=== PATIENT | male | born 1960 | race Caucasian/White ===

== ENCOUNTER 2025-03-01 14:41 | Emergency (ER) | payer BC, SELFPAY ==
[2025-03-01 14:46] VITALS: BP 150/101
[2025-03-01 14:47] VITALS: BMI 32.3
[2025-03-01 14:48] VITALS: BP 150/101
--- NOTE | 2025-03-01 14:57 | ED.GENMED ---
History of Present Illness
General
Chief Complaint: Flank Pain
Source: patient
Time Seen by Provider: 03/01/25 14:49
History of Present Illness
History of Present Illness:
Note:
HISTORY OF PRESENT ILLNESS
The patient is a 64-year-old male who presented with lower right-sided back pain. The pain started this morning around 8:30 AM and was described by the patient as worsening to be more severe than previous episodes of back pain. The patient is prone
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 However, this incident of pain is notably more intense. The pain is described as a combination of sharp, dull, and aching sensations, with fluctuating intensity. The patient
indicated that the pain feels similar to previous kidney stone episodes, as he has a history of passing two kidney stones. He took two Tylenol and Motrin at around 11 AM to manage the pain, but these provided minimal relief. The patient denies any
urinary symptoms such as burning or frequent urination.
CHRONIC MEDICAL CONDITIONS SIGNIFICANTLY AFFECTING CARE
History of kidney stones.
SOCIAL HISTORY
The patient smokes cigarettes, typically less than a pack per day. He consumes alcohol socially.
REVIEW OF SYSTEMS
- Musculoskeletal: Lower right-sided back pain, described as sharp and dull; more severe than past episodes.
- Genitourinary: No burning or frequent urination reported.
PLAN
- Administer analgesic medication and antiemetic for pain and nausea management.
- Administer fluids.
- Obtain urine sample for microscopic blood and infection evaluation.
- Conduct blood work for further assessment.
- Reassessment of the patient will be performed after initial treatment.
DIFFERENTIAL DIAGNOSIS
The Differential Diagnosis includes, in no particular order and is not limited to:
1. Nephrolithiasis
2. Musculoskeletal strain
3. Pyelonephritis
4. Sciatica
5. Renal colic
6. Lumbar disc herniation
7. Urinary tract infection
8. Spinal stenosis
9. Osteoarthritis
10. Pancreatitis
Review of Systems
Review of Systems
All Other Systems: ROS reviewed and negative except as documented in HPI and ROS
Phy Exam
Physical Exam
Physical Exam:
GENERAL: Alert , in no apparent distress
EYE: clear conjunctiva b/l
HEAD: NCAT
ENT: o/p clr, mmm.
CARDIAC: Regular rate and rhythm .
LUNGS: Clear breath sounds bilaterally, no acute respiratory distress, no wheezes/rales/rhonchi
ABDOMEN: Soft, without focal tenderness, no r/g, mild right CVA tenderness and right mid abdomen tenderness, negative Monsivais sign, no tenderness at McBurney's point
NEUROLOGICAL: Alert and oriented
SKIN: Warm and dry, skin intact.
MUSCULOSKELETAL: No edema, well perfused.
PSYCH: Normal and appropriate interaction.
Scores
Heart Failure Risk
Heart Failure Risk Score: Not Applicable
Heart Score for Chest Pain Patients
STEMI patient?: Not applicable
Withdrawal Assessment of Alcohol
Withdrawal Assessment Completed?: Not applicable
Course
Orders/Labs/Results
Orders:
Orders
03/01/25 14:57
0.9% Sodium Chloride 1000 ml [Nss] 1,000 ml IV BOLUS
Morphine Sulfate 4 mg IV NOW STA
Ondansetron Injectable [Zofran] 4 mg IV NOW STA
03/01/25 14:58
CT Abd/pel Without Iv Or Oral Urgent
Comment:
Reason For Exam: right flank pain, hx stones
03/01/25 15:13
Complete Blood Count/With Diff Urgent
Comprehensive Metabolic Panel Urgent
03/01/25 16:32
Urinalysis Reflex To Culture Urgent
Date Specimen was Collected: 03/01/25
Time Specimen was Collected: 16:27
Urine Microscopic Reflex Cult Urgent
Urine Culture Urgent
JOEL Source: U
Specimen Description:
Date Specimen was Collected: 03/01/25
Time Specimen was Collected: 16:27
Abnormal Lab Results
03/01/25 03/01/25
15:13 16:32
WBC 14.6 H 10^3/uL
(4.8-10.8)
Abs Immat Gran (auto) 0.1 H 10^3/uL
(0-0.05)
Absolute Neuts (auto) 11.1 H 10^3/uL
(1.4-6.5)
Absolute Monos (auto) 1.1 H 10^3/uL
(0.1-0.6)
Immature Gran % 0.8 H %
(0-0.5)
Neutrophils % 75.5 H %
(42.2-75.2)
Lymphocytes % 14.8 L %
(20.5-51.1)
Chloride 109 H mmol/L
(98-107)
Glucose 144 H mg/dl
(70-99)
Urine Ketones 2+ A
(Negative)
Ur Occult Blood Reflex 4+ A
(Negative)
Leukocyte Esterase Rfl 2+ A
(Negative)
Urine RBC 80-90 A /HPF
(0-2)
Urine WBC (Reflex) 16-20 A /HPF
(0-5)
Urine Bacteria (Reflex) Many A
(Negative)
Urine Albumin (Reflex) 2+ A
(Neg - Trace)
03/01/25 15:13
03/01/25 15:13
Vital Signs
Initial and Last Documented VS:
Initial Vital Signs
BP
150/101
03/01/25 14:46
Last Documented Vital Signs
Temp Pulse Resp BP Pulse Ox
98.0 F 79 14 139/88 96
03/01/25 14:48 03/01/25 17:00 03/01/25 17:00 03/01/25 17:00 06/11/25 17:00
MDM/Problems Addressed
Differential Diagnosis Includes:
DIFFERENTIAL DIAGNOSIS
The Differential Diagnosis includes, in no particular order and is not limited to:
1. Nephrolithiasis
2. Musculoskeletal strain
3. Pyelonephritis
4. Sciatica
5. Renal colic
6. Lumbar disc herniation
7. Urinary tract infection
8. Spinal stenosis
9. Osteoarthritis
10. Pancreatitis
MDM/Problems Addressed:
PLAN
- Administer analgesic medication and antiemetic for pain and nausea management.
- Administer fluids.
- Obtain urine sample for microscopic blood and infection evaluation.
- Conduct blood work for further assessment.
- Reassessment of the patient will be performed after initial treatment.
Chronic conditions affecting care: Other (Previous kidney stones)
*Pulse Oximetry
Patient hypoxic: no
*Critical Care Note
Total Time (30-74mins, 75-104mins- exclusive of procedures): Not Applicable
Patient Management
Escalation/DeEscalation of care consider admission/obs:
CARE-UPDATE
03/01/25 - 16:42
White blood cell count elevated at 14,000; awaiting urinalysis and CT scan results.
Disposition:
SUMMARY OF ENCOUNTER
The patient, a 64-year-old male, presented to the emergency department with severe lower right-sided back pain, reminiscent of previous kidney stone episodes. Given the patients history of passing kidney stones and the nature of his pain, a CT scan
was performed. The scan revealed mild acute cystitis and non-obstructing bilateral renal calculi, with a notable calculus on the right side measuring up to 1.3 centimeters. Initial management included the administration of analgesics, which resulted
in significant pain relief for the patient. There was also a concern for potential infection, so the patient was started on Bactrim.
PLAN
The patient is to be discharged with a prescription for Bactrim to address the infection identified. Discharge instructions include monitoring for worsening pain, fevers, or vomiting, and to return to the emergency department if these symptoms
occur. Follow-up with his urologist in [place], [place], is recommended.
PATIENT EDUCATION AND COUNSELING
The patient was advised on signs that would necessitate a return to the emergency room, such as worsening pain, fever, or vomiting. He expressed understanding of these instructions and is aware of the importance of follow-up care with his urologist.
SMOKING CESSATION COUNSELING
The patient smokes cigarettes. I counseled him on cessation and informed him that smoking poses significant health risks and can cause serious health ailments. I encouraged him to consider cold-turkey cessation, or use nicotine patches/gum to curb
cravings and to discuss other potential prescription options with his PCP during follow-up.
ED Attending Note
-
Portions of this chart may have been created with voice recognition software.� Occasional wrong word or��sound alike� substitutions may have occurred due to the inherent limitations of voice recognition software.
Discharge Plan
Departure
Patient Disposition: Home (Routine Discharge)
Date of Disposition: 03/01/25
Time of Disposition: 17:50
Patient with high blood pressure during this ER visit?: Yes
Discharge Problem:
Urinary tract infection, Renal colic on right side, Bilateral nephrolithiasis
Instructions: Renal Colic (DC), Urinary tract infection in adults - ED discharge instructions
Prescriptions:
New
sulfamethoxazole-trimethoprim [Bactrim DS] 800-160 mg tablet
1 tab PO BID 10 Days Qty: 20 0RF
Referrals:
Karen Mendoza DO [Family Provider, Family Practice]
Interventions
Interventions:
*Risk Screen - Suicide Last Done: 03/01/25 14:48
*General Assessment Last Done: 03/01/25 14:48
*Neglect/Abuse Screening Last Done: 03/01/25 14:48
*ED- Fall Risk Assessment Last Done: 03/01/25 14:48
*ED COVID-19 Vaccine History Last Done: 03/01/25 14:48
*Nursing Disposition Last Done: 03/01/25 18:00
CU-Bqhefs-Fglkcjsnzb Assessment Last Done: 03/01/25 14:48
ED-Male Genitourinary Assessment Last Done: 03/01/25 14:48
Discharge Date and Time
Discharge Date/Time: 03/01/25 18:00
Print Language: LAO
[2025-03-01 15:00] VITALS: BP 166/89
[2025-03-01] MEDS: NSS 1000 IV (15:08)
[2025-03-01] MEDS: ZOFRAN 4 MG IV (15:08)
[2025-03-01] MEDS: MORPHINE SULFATE 4 MG IV (15:09)
[2025-03-01 15:26] LABS: % Basophils 0.5 % (0-2); % Eosinophils 0.6 % (0-6); % Immature Granulocytes 0.8 % (0-0.5); % Lymphocytes 14.8 % (20.5-51.1); % Monocytes 7.8 % (1.7-9.3); % Neutrophils 75.5 % (42.2-75.2); Absolute Basophils 0.1 10^3/uL (0-0.2); Absolute Eosinophils 0.1 10^3/uL (0-0.7); Absolute Immature Granulocytes 0.1 10^3/uL (0-0.05); Absolute Lymphocytes 2.2 10^3/uL (1.2-3.4); Absolute Monocytes 1.1 10^3/uL (0.1-0.6); Absolute Neutrophils 11.1 10^3/uL (1.4-6.5); Mean Corp Hgb Conc. 34.9 g/dL (33.0-37.0); Mean Corpuscular Hgb 30.7 pg (27.0-31.0); Mean Corpuscular Volume 88.1 fL (80.0-94.0); Mean Platelet Volume 9.5 fL (7.4-10.4); Nucleated Red Blood Cells % 0 % (-); Platelet Count 323 10^3/uL (130-400); Red Blood Cell Count 4.88 10^6/uL (4.70-6.10); Red Cell Dist. Width 12.4 % (11.5-14.5); White Blood Cell Count 14.6 10^3/uL (4.8-10.8)
[2025-03-01 15:41] LABS: ALT (SGPT) 37 U/L (0-50); AST (SGOT) 28 U/L (17-59); Albumin 4.6 g/dl (3.5-5.0); Alkaline Phosphatase 111 U/L (38-126); Blood Urea Nitrogen 17 mg/dl (9-20); Calcium 9.4 mg/dl (8.4-10.2); Carbon Dioxide 22 mmol/L (22-30); Chloride 109 mmol/L (98-107); Estimated Creatinine Clearance 99 ml/min; Glucose 144 mg/dl (70-99); Potassium 4.3 mmol/L (3.5-5.1); Sodium 139 mmol/L (135-145); Total Bilirubin 1.2 mg/dl (0.2-1.3); Total Protein 7.2 g/dl (6.3-8.2); eGFR > 60.00
[2025-03-01 16:00] VITALS: BP 133/90
[2025-03-01 16:41] LABS: Urine Albumin 2+ (Neg - Trace); Urine Bilirubin Negative (Negative); Urine Character Clear (Clear); Urine Color Yellow; Urine Glucose Negative (Negative); Urine Ketone 2+ (Negative); Urine Leukocyte 2+ (Negative); Urine Nitrite Negative (Negative); Urine Occult Blood 4+ (Negative); Urine Specific Gravity 1.025 (<1.030); Urine Urobilinogen Negative (Neg - 1+)
[2025-03-01 17:00] VITALS: BP 139/88
[2025-03-01 17:05] LABS: Urine Mucus Many; Urine Squamous Cell 0-2 /LPF (Few)
[2025-03-01 17:06] LABS: Urine Bacteria Many (Negative); Urine Red Blood Cell 80-90 /HPF (0-2); Urine White Cell 16-20 /HPF (0-5)
== END 2025-03-01 18:00 | disposition home or self-care (01) ==
LOC: EMR 14:41
PROVIDERS: Physician Assistant Medical; EMERGENCY PHYSICIAN Emergency Medicine; FAMILY PHYSICIAN Family Medicine
DX: N39.0 Urinary tract infection, site not specified (principal); N20.0 Calculus of kidney; F17.210 Nicotine dependence, cigarettes, uncomplicated
CPT/HCPCS: 96374; 96375; 96361; 99284; 74176; 80053; 81003; 81015; 85025; 87086